=== PATIENT | male | born 1980 | race African-American/Black ===

== ENCOUNTER 2023-03-26 12:19 | Inpatient (IN) | payer OTHER, MEDICAID ==
[2023-03-26 13:42] LABS: #Eosinphils 0.1 thou/uL (0.0-0.7); #Monocytes 1.2 thou/uL (0.11-0.59); %Basophils 0.4 % (0.0-1.0); %Eosinophils 1.3 % (0.0-10.0); %Monocytes 11.9 % (0.0-10.0); %Neutrophils 60.4 % (42.0-75.0); Hematocrit 25.2 % (42.0-52.0); Mean Corpuscular HGB CONC 35.7 g/dL (32.0-36.0); Mean Corpuscular Hemoglobin 36.1 pg (27.0-31.0); Mean Corpuscular Volume 101.2 fl (78.0-98.0); Mean Platelet Volume 10.2 fL (7.4-10.4); Platelet Count 172 10x3/uL (130-400); RBC Distribution Width 17.5 % (11.5-14.5); Red Blood Cell (RBC) Count 2.49 mill/uL (4.70-6.10)
[2023-03-26 13:55] LABS: INR-International Normal Ratio 2.3; Prothrombin Time 25.2 sec (12.0-14.7)
[2023-03-26 13:59] LABS: ALT (SGPT) 22 U/L (8-55); AST (SGOT) 68 U/L (5-34); Acetaminophen Less than 10 mcg/mL (10.0-30.0); Alcohol Less than 10.0 mg/dL (Less than 10); Alkaline Phosphatase 70 U/L (40-110); Anion Gap 12 mmol/L (10-20); BUN (Urea Nitrogen) 13 mg/dL (8.9-20.6); Bilirubin, Total 7.3 mg/dL (0.2-1.2); Calc. Creatinine Clearance 0 mL/min (70-130); Calcium 7.5 mg/dL (7.8-10.44); Carbon Dioxide 19 mmol/L (22-29); Chloride 100 mmol/L (98-107); Estimated GFR 85; Globulin 6.2 g/dL (2.4-3.5); Glucose 110 mg/dL (70-105); Lipase 82 U/L (8-78); Protein, Total 8.2 g/dL (6.0-8.3); Salicylate Less than 8.0 mg/dL (15.0-30.0); Sodium 127 mmol/L (136-145)
[2023-03-26 14:20] LABS: Troponin I Less than 0.010 ng/mL (< 0.028)
[2023-03-26 14:45] LABS: Actual Bicarbonate (HCO3v) 18.3 mEq/L (22-28); Analyzer IN Cardio ER; Base Excess -4.9 mEq/L (-2.0 to +3.0); Calcium, Ionized (venous) 1.06 mmol/L (1.16-1.32); Chloride (VBG) 102 mmol/L (98-106); Hematocrit-VBG 36 % (42.0-52.0); Hemoglobin (Hb) 12.4 g/dL (13.2-17.3); Potassium (VBG) 4.21 mmol/L (3.70-5.30); Sodium 131 mmol/L (133-146); pH (venous) 7.422 (7.32-7.43)
[2023-03-26 17:16] LABS: Lactic Acid 1.7 mmol/L (0.5-2.2)
[2023-03-26] MEDS ORDERED: Lactulose 20 GM (30 mL) UDCUP ONE (18:15)
[2023-03-26] MEDS ORDERED: Sodium Chloride 0.9% 100 ML ONE (18:15)
[2023-03-26] MEDS ORDERED: cefTRIAXone (ROCEPHIN) 2 GM VIAL ONE (18:15)
[2023-03-26] MEDS ORDERED: Vancomycin (BATCH) 2 GM in Premix 1 BAG IVPB SCH (18:45)
[2023-03-26 20:32] LABS: RBC Count-Automated (BF) 14562 /cu.mm; WBC/Nucleated-Auto (BF) 235 /cu.mm
[2023-03-26 20:40] LABS: BF Color Red; Body Fluid Source Ascites Body Fluid; Clarity Cloudy/Turbid (Clear); Tube # EDTA
[2023-03-26 21:13] LABS: BF Segmented Neutrophils 18 %; Cell Count Non Hematic 29 %; Lymphocytes 53 %
[2023-03-26] MEDS ORDERED: Lorazepam 1 MG TAB PO PRN (21:37)
[2023-03-26] MEDS ORDERED: Lorazepam 2 MG/ML VIAL IM PRN (21:37)
[2023-03-26] MEDS ORDERED: Ondansetron ODT 4 MG TAB PO PRN ×2 (21:37→21:38)
[2023-03-26] MEDS ORDERED: Electrolyte Replacement Protocol FS SCH (21:45)
[2023-03-26] MEDS ORDERED: Albumin 5% 25 GM (500 mL) BOT IVPB SCH (22:30)
[2023-03-27] MEDS ORDERED: Thiamine HCl 200 MG/2 ML VIAL ONE (00:41)
[2023-03-27] MEDS: Thiamine HCl 200 MG/2 ML VIAL SLOW IVP SCH (00:48)
[2023-03-27 05:24] LABS: #Eosinphils 0.2 thou/uL (0.0-0.7); #Neutrophils 5.9 thou/uL (1.40-6.50); %Basophils 0.4 % (0.0-1.0); %Eosinophils 1.9 % (0.0-10.0); %Lymphocytes 24.3 % (21.0-51.0); %Monocytes 10.8 % (0.0-10.0); %Neutrophils 61.3 % (42.0-75.0); Hematocrit 23.9 % (42.0-52.0); Hemoglobin 8.6 g/dL (14.0-18.0); Mean Corpuscular Hemoglobin 36.6 pg (27.0-31.0); Mean Corpuscular Volume 101.7 fl (78.0-98.0); Mean Platelet Volume 10.4 fL (7.4-10.4); Platelet Count 155 10x3/uL (130-400); Red Blood Cell (RBC) Count 2.35 mill/uL (4.70-6.10); White Blood Cell (WBC) Count 9.5 10x3/uL (4.8-10.8)
[2023-03-27 05:53] LABS: ALT (SGPT) 19 U/L (8-55); AST (SGOT) 57 U/L (5-34); Alkaline Phosphatase 65 U/L (40-110); Anion Gap 12 mmol/L (10-20); BUN (Urea Nitrogen) 13 mg/dL (8.9-20.6); Bilirubin, Total 6.7 mg/dL (0.2-1.2); Calc. Creatinine Clearance 0 mL/min (70-130); Calcium 7.4 mg/dL (7.8-10.44); Carbon Dioxide 19 mmol/L (22-29); Chloride 104 mmol/L (98-107); Estimated GFR 111; Globulin 5.6 g/dL (2.4-3.5); Glucose 107 mg/dL (70-105); Potassium 3.7 mmol/L (3.5-5.1); Protein, Total 7.6 g/dL (6.0-8.3); Sodium 131 mmol/L (136-145)
[2023-03-27] MEDS ORDERED: cefTRIAXone\\ROCEPHIN 1 GM in Sodium Chloride 0.9% 100 ML IVPB SCH (09:00)
[2023-03-27] MEDS ORDERED: Folic Acid 1 MG TAB ONE (10:01)
[2023-03-27] MEDS ORDERED: Famotidine 20 MG TAB ONE (10:01)
[2023-03-27] MEDS ORDERED: Furosemide 40 MG TAB ONE (10:01)
[2023-03-27] MEDS ORDERED: Lactulose 20 GM (30 mL) UDCUP ONE (10:02)
[2023-03-27] MEDS ORDERED: cefTRIAXone (ROCEPHIN) 1 GM VIAL ONE (10:02)
[2023-03-27] MEDS ORDERED: Multivit, Therapeutic 1 TAB ONE (10:02)
[2023-03-27] MEDS: Multivit, Therapeutic 1 TAB PO SCH (10:09)
[2023-03-27] MEDS: Famotidine 20 MG TAB PO SCH ×2 (10:09→20:19)
[2023-03-27] MEDS: Folic Acid 1 MG TAB PO SCH (10:09)
[2023-03-27] MEDS: Furosemide 40 MG TAB PO SCH (10:09)
[2023-03-27] MEDS: Lactulose 20 GM (30 mL) UDCUP PO SCH ×2 (10:11→20:19)
[2023-03-27] MEDS: Nadolol 40 MG TAB PO SCH (14:05)
[2023-03-27] MEDS: Rifaximin 550 MG TAB PO SCH ×2 (14:05→20:19)
[2023-03-27] MEDS: Spironolactone 100 MG TAB PO SCH (14:05)
[2023-03-27] MEDS ORDERED: Benztropine 1 MG TAB PO SCH (19:15)
[2023-03-27] MEDS ORDERED: risperiDONE 1 MG TAB PO SCH (19:15)
[2023-03-27] MEDS: Benztropine 1 MG TAB PO SCH (20:19)
[2023-03-27] MEDS: risperiDONE 1 MG TAB PO SCH (20:19)
[2023-03-27] MEDS ORDERED: Lorazepam 1 MG TAB PO PRN (21:37)
[2023-03-28] MEDS: Thiamine HCl 200 MG/2 ML VIAL SLOW IVP SCH ×2 (00:01→22:50)
[2023-03-28 04:23] LABS: #Eosinphils 0.1 thou/uL (0.0-0.7); #Monocytes 0.8 thou/uL (0.11-0.59); #Neutrophils 4.9 thou/uL (1.40-6.50); %Basophils 0.5 % (0.0-1.0); %Eosinophils 1.4 % (0.0-10.0); %Monocytes 10.3 % (0.0-10.0); %Neutrophils 61.3 % (42.0-75.0); Hematocrit 21.3 % (42.0-52.0); Hemoglobin 7.5 g/dL (14.0-18.0); Mean Corpuscular HGB CONC 35.2 g/dL (32.0-36.0); Mean Corpuscular Hemoglobin 35.7 pg (27.0-31.0); Mean Corpuscular Volume 101.4 fl (78.0-98.0); Mean Platelet Volume 9.8 fL (7.4-10.4); Platelet Count 129 10x3/uL (130-400); RBC Distribution Width 17.4 % (11.5-14.5)
[2023-03-28 04:48] LABS: Iron 52 ug/dL (65-175); Iron Binding Capacity, Total 104 mcg/dL (261-462)
[2023-03-28 04:49] LABS: ALT (SGPT) 19 U/L (8-55); AST (SGOT) 57 U/L (5-34); Alkaline Phosphatase 73 U/L (40-110); Anion Gap 11 mmol/L (10-20); BUN (Urea Nitrogen) 11 mg/dL (8.9-20.6); Bilirubin, Total 5.7 mg/dL (0.2-1.2); Calc. Creatinine Clearance 191 mL/min (70-130); Calcium 7.4 mg/dL (7.8-10.44); Carbon Dioxide 21 mmol/L (22-29); Chloride 103 mmol/L (98-107); Estimated GFR 110; Globulin 5.4 g/dL (2.4-3.5); Glucose 114 mg/dL (70-105); Iron 53 ug/dL (65-175); Iron Binding Capacity, Total 101 mcg/dL (261-462); Magnesium 3.1 mg/dL (1.6-2.6); Potassium 3.6 mmol/L (3.5-5.1); Protein, Total 7.4 g/dL (6.0-8.3); Sodium 131 mmol/L (136-145)
[2023-03-28 04:51] LABS: Immunoglob - A (Total IgA) 1878 mg/dL (63-484); Immunoglob - G (Total IgG) 2742 mg/dL (540-1822); Immunoglob - M (Total IgM) 109 mg/dL (22-240)
[2023-03-28 05:18] LABS: HBCM Index 0.09 S/CO (0-0.79); HBSAg Index 0.26 S/CO (0-0.99); Hep A IgM AB Non-Reactive S/CO (NonReactive); Hep B Surf Ag Non-Reactive S/CO (NonReactive); Hep C IgG Ab Non-Reactive S/CO (NonReactive); Hep C Index 0.18 S/CO (0-0.79); Hepatitis B Core IgM Abs Non-Reactive S/CO (NonReactive)
[2023-03-28] MEDS: Folic Acid 1 MG TAB PO SCH (08:15)
[2023-03-28] MEDS: Famotidine 20 MG TAB PO SCH (08:15)
[2023-03-28] MEDS: Furosemide 40 MG TAB PO SCH (08:15)
[2023-03-28] MEDS: Spironolactone 100 MG TAB PO SCH (08:15)
[2023-03-28] MEDS: Multivit, Therapeutic 1 TAB PO SCH (08:15)
[2023-03-28] MEDS: Nadolol 40 MG TAB PO SCH (08:15)
[2023-03-28] MEDS: Rifaximin 550 MG TAB PO SCH ×2 (08:15→20:43)
[2023-03-28] MEDS ORDERED: Amlodipine 5 MG TAB PO SCH (09:00)
[2023-03-28] MEDS: Lactulose 20 GM (30 mL) UDCUP PO SCH ×2 (10:00→20:41)
[2023-03-28] MEDS: Benztropine 1 MG TAB PO SCH (20:42)
[2023-03-28] MEDS: risperiDONE 1 MG TAB PO SCH (20:45)
[2023-03-28] MEDS ORDERED: Lorazepam 1 MG TAB PO PRN (21:37)
[2023-03-29 07:08] LABS: ALT (SGPT) 21 U/L (8-55); AST (SGOT) 69 U/L (5-34); Albumin 2.1 g/dL (3.5-5.0); Alkaline Phosphatase 77 U/L (40-110); Anion Gap 12 mmol/L (10-20); BUN (Urea Nitrogen) 10 mg/dL (8.9-20.6); Bilirubin, Total 5.9 mg/dL (0.2-1.2); Calc. Creatinine Clearance 183 mL/min (70-130); Calcium 7.5 mg/dL (7.8-10.44); Carbon Dioxide 20 mmol/L (22-29); Chloride 103 mmol/L (98-107); Estimated GFR 109; Globulin 5.8 g/dL (2.4-3.5); Glucose 134 mg/dL (70-105); Potassium 3.7 mmol/L (3.5-5.1); Protein, Total 7.9 g/dL (6.0-8.3); Sodium 130 mmol/L (136-145)
[2023-03-29 07:49] LABS: #Basophils 0.1 thou/uL (0.0-0.2); #Eosinphils 0.2 thou/uL (0.0-0.7); #Monocytes 0.6 thou/uL (0.11-0.59); #Neutrophils 5.1 thou/uL (1.40-6.50); %Basophils 0.7 % (0.0-1.0); %Eosinophils 2.1 % (0.0-10.0); %Lymphocytes 19.8 % (21.0-51.0); %Monocytes 8.2 % (0.0-10.0); %Neutrophils 68.1 % (42.0-75.0); Hemoglobin 7.8 g/dL (14.0-18.0); Mean Corpuscular HGB CONC 35.5 g/dL (32.0-36.0); Mean Corpuscular Hemoglobin 36.4 pg (27.0-31.0); Mean Corpuscular Volume 102.8 fl (78.0-98.0); Mean Platelet Volume 10.3 fL (7.4-10.4); Platelet Count 134 10x3/uL (130-400); RBC Distribution Width 17.6 % (11.5-14.5); Red Blood Cell (RBC) Count 2.14 mill/uL (4.70-6.10); White Blood Cell (WBC) Count 7.5 10x3/uL (4.8-10.8)
[2023-03-29] MEDS: Amlodipine 5 MG TAB PO SCH (08:13)
[2023-03-29] MEDS: Folic Acid 1 MG TAB PO SCH (08:13)
[2023-03-29] MEDS: Furosemide 40 MG TAB PO SCH (08:13)
[2023-03-29] MEDS: Lactulose 20 GM (30 mL) UDCUP PO SCH ×2 (08:13→21:03)
[2023-03-29] MEDS: Atorvastatin Calcium 20 MG TAB PO SCH (08:13)
[2023-03-29] MEDS: Multivit, Therapeutic 1 TAB PO SCH (08:13)
[2023-03-29] MEDS: Nadolol 40 MG TAB PO SCH (08:13)
[2023-03-29] MEDS: Spironolactone 100 MG TAB PO SCH (08:13)
[2023-03-29] MEDS: Rifaximin 550 MG TAB PO SCH ×2 (08:54→21:03)
[2023-03-29] MEDS: Acetaminophen 325 MG TAB PO PRN ×2 (10:14→15:35)
[2023-03-29 12:02] LABS: ANA Symphony (Qualitative) Negative (Negative); ANA Symphony (Quantitative) 0.4 Ratio (< 0.7 Negative); EliA Vaculitis New Method **** NEW METHOD ****; Mitochondrial Ab 1.6 U/mL (<4 Negative); dsDNA IgG Antibody 2.5 IU/mL (<10 Negative)
[2023-03-29] MEDS: cefTRIAXone\\ROCEPHIN 2 GM in Sodium Chloride 0.9% 100 ML IVPB SCH (12:54)
[2023-03-29] MEDS ORDERED: Sodium Bicarbonate 0.5 MEQ/ML SDV 10 ML ONE (14:29)
[2023-03-29] MEDS ORDERED: Lidocaine 1% w/Epinephrine 1:100K 20 ML VIAL ONE (14:29)
[2023-03-29] MEDS: risperiDONE 1 MG TAB PO SCH (21:03)
[2023-03-29] MEDS: Benztropine 1 MG TAB PO SCH (21:03)
[2023-03-29] MEDS ORDERED: Lorazepam 0.5 MG TAB PO PRN (21:37)
[2023-03-29] MEDS: Thiamine 100 MG TAB PO SCH (23:32)
[2023-03-30] MEDS ORDERED: GUAIFENESIN SF SOLN 200 MG/10 ML UDCUP PO PRN (04:22)
[2023-03-30] MEDS: Benzonatate 100 MG CAP PO PRN ×2 (05:55→22:56)
[2023-03-30] MEDS ORDERED: Acetaminophen 325 MG TAB PO PRN (07:41)
[2023-03-30] MEDS: Spironolactone 100 MG TAB PO SCH (08:47)
[2023-03-30] MEDS: Rifaximin 550 MG TAB PO SCH ×2 (08:47→22:59)
[2023-03-30] MEDS: Lactulose 20 GM (30 mL) UDCUP PO SCH ×2 (08:47→22:47)
[2023-03-30] MEDS: Amlodipine 5 MG TAB PO SCH (08:47)
[2023-03-30] MEDS: Nadolol 40 MG TAB PO SCH (08:47)
[2023-03-30] MEDS: Furosemide 40 MG TAB PO SCH (08:48)
[2023-03-30] MEDS: Folic Acid 1 MG TAB PO SCH (08:48)
[2023-03-30] MEDS: Multivit, Therapeutic 1 TAB PO SCH (08:48)
[2023-03-30] MEDS: Atorvastatin Calcium 20 MG TAB PO SCH (08:48)
[2023-03-30] MEDS: cefTRIAXone\\ROCEPHIN 2 GM in Sodium Chloride 0.9% 100 ML IVPB SCH (12:01)
[2023-03-30] MEDS ORDERED: Guaifenesin DM 100-10/5 ML UDCUP PO PRN (15:09)
[2023-03-30] MEDS ORDERED: Vancomycin (BATCH) 2 GM in Premix 1 BAG IVPB SCH (15:30)
[2023-03-30 20:31] LABS: Bilirubin Negative (Negative); Blood, Urine Negative (Negative); Clarity Clear (Clear); Glucose, Urine (Dipstick) Normal (Negative); Ketone, Urine Negative (Negative); Leukocyte Negative Leu/uL (Negative); Nitrite Negative (Negative); Protein, Urine (Dipstick) Negative (Neg-Trace); Specific Gravity, Urine 1.009 (1.002-1.036); Urobilinogen 12 mg/dL (Less than 2)
[2023-03-30] MEDS ORDERED: Vancomycin 1 GM in Premix 1 BAG IVPB SCH (21:00)
[2023-03-30] MEDS: risperiDONE 1 MG TAB PO SCH (22:47)
[2023-03-30] MEDS: Benztropine 1 MG TAB PO SCH (22:47)
[2023-03-30] MEDS: Thiamine 100 MG TAB PO SCH (22:47)
[2023-03-30] MEDS: Vancomycin 1 GM in Premix 1 BAG IVPB SCH (23:05)
[2023-03-31 05:21] LABS: #Eosinphils 0.1 thou/uL (0.0-0.7); #Monocytes 0.8 thou/uL (0.11-0.59); #Neutrophils 3.5 thou/uL (1.40-6.50); %Basophils 0.5 % (0.0-1.0); %Eosinophils 1.9 % (0.0-10.0); %Lymphocytes 29.3 % (21.0-51.0); %Monocytes 12.5 % (0.0-10.0); %Neutrophils 54.9 % (42.0-75.0); Hemoglobin 7.1 g/dL (14.0-18.0); Mean Corpuscular HGB CONC 35.5 g/dL (32.0-36.0); Mean Corpuscular Hemoglobin 36.2 pg (27.0-31.0); Mean Platelet Volume 10.2 fL (7.4-10.4); Platelet Count 113 10x3/uL (130-400); RBC Distribution Width 17.6 % (11.5-14.5); Red Blood Cell (RBC) Count 1.96 mill/uL (4.70-6.10); White Blood Cell (WBC) Count 6.3 10x3/uL (4.8-10.8)
[2023-03-31 05:40] LABS: ALT (SGPT) 31 U/L (8-55); AST (SGOT) 125 U/L (5-34); Albumin 1.9 g/dL (3.5-5.0); Alkaline Phosphatase 75 U/L (40-110); Anion Gap 12 mmol/L (10-20); BUN (Urea Nitrogen) 8 mg/dL (8.9-20.6); Bilirubin, Total 4.3 mg/dL (0.2-1.2); Calc. Creatinine Clearance 189 mL/min (70-130); Calcium 7.2 mg/dL (7.8-10.44); Carbon Dioxide 21 mmol/L (22-29); Chloride 102 mmol/L (98-107); Estimated GFR 110; Globulin 5.8 g/dL (2.4-3.5); Glucose 107 mg/dL (70-105); Potassium 3.6 mmol/L (3.5-5.1); Protein, Total 7.7 g/dL (6.0-8.3); Sodium 131 mmol/L (136-145)
[2023-03-31] MEDS: Folic Acid 1 MG TAB PO SCH (08:59)
[2023-03-31] MEDS: Nadolol 40 MG TAB PO SCH (08:59)
[2023-03-31] MEDS: Multivit, Therapeutic 1 TAB PO SCH (08:59)
[2023-03-31] MEDS: Spironolactone 100 MG TAB PO SCH (08:59)
[2023-03-31] MEDS: Amlodipine 5 MG TAB PO SCH (09:00)
[2023-03-31] MEDS: Rifaximin 550 MG TAB PO SCH ×2 (09:00→22:14)
[2023-03-31] MEDS: Lactulose 20 GM (30 mL) UDCUP PO SCH ×2 (09:00→22:14)
[2023-03-31] MEDS: Atorvastatin Calcium 20 MG TAB PO SCH (09:00)
[2023-03-31] MEDS: Vancomycin 1 GM in Premix 1 BAG IVPB SCH ×2 (09:01→16:50)
[2023-03-31] MEDS: Furosemide 40 MG TAB PO SCH (09:01)
[2023-03-31] MEDS ORDERED: Vancomycin 1 GM in Premix 1 BAG IVPB SCH (11:45)
[2023-03-31] MEDS: cefTRIAXone\\ROCEPHIN 2 GM in Sodium Chloride 0.9% 100 ML IVPB SCH (14:21)
[2023-03-31 16:12] LABS: Vancomycin, Trough 11.9 ug/mL
[2023-03-31] MEDS ORDERED: Acetaminophen 325 MG TAB PO PRN (16:36)
[2023-03-31] MEDS: Albumin 25% 25 GM (100 mL) BOT IVPB SCH (19:39)
[2023-03-31] MEDS: Thiamine 100 MG TAB PO SCH (22:13)
[2023-03-31] MEDS: risperiDONE 1 MG TAB PO SCH (22:13)
[2023-03-31] MEDS: Benztropine 1 MG TAB PO SCH (22:14)
[2023-04-01] MEDS: Albumin 25% 25 GM (100 mL) BOT IVPB SCH ×4 (00:03→18:03)
[2023-04-01] MEDS: Vancomycin 1 GM in Premix 1 BAG IVPB SCH ×2 (00:49→11:11)
[2023-04-01 04:30] LABS: #Basophils 0.1 thou/uL (0.0-0.2); #Eosinphils 0.2 thou/uL (0.0-0.7); #Monocytes 0.8 thou/uL (0.11-0.59); #Neutrophils 3.5 thou/uL (1.40-6.50); %Basophils 0.8 % (0.0-1.0); %Eosinophils 3.5 % (0.0-10.0); %Lymphocytes 28.8 % (21.0-51.0); %Monocytes 12.7 % (0.0-10.0); %Neutrophils 53.1 % (42.0-75.0); Hematocrit 18.1 % (42.0-52.0); Hemoglobin 6.4 g/dL (14.0-18.0); Mean Corpuscular HGB CONC 35.4 g/dL (32.0-36.0); Mean Corpuscular Hemoglobin 35.6 pg (27.0-31.0); Mean Corpuscular Volume 100.6 fl (78.0-98.0); Mean Platelet Volume 10.3 fL (7.4-10.4); Platelet Count 100 10x3/uL (130-400); RBC Distribution Width 17.6 % (11.5-14.5); White Blood Cell (WBC) Count 6.6 10x3/uL (4.8-10.8)
[2023-04-01 04:57] LABS: ALT (SGPT) 24 U/L (8-55); AST (SGOT) 87 U/L (5-34); Alkaline Phosphatase 67 U/L (40-110); BUN (Urea Nitrogen) 7 mg/dL (8.9-20.6); Calc. Creatinine Clearance 203 mL/min (70-130); Carbon Dioxide 23 mmol/L (22-29); Estimated GFR 112; Globulin 4.7 g/dL (2.4-3.5); Glucose 130 mg/dL (70-105); Protein, Total 6.7 g/dL (6.0-8.3); Sodium 132 mmol/L (136-145)
[2023-04-01 05:02] LABS: Calcium 6.9 mg/dL (7.8-10.44)
[2023-04-01 05:19] LABS: Chloride 105 mmol/L (98-107); Potassium 3.4 mmol/L (3.5-5.1)
[2023-04-01 05:20] LABS: Anion Gap 7 mmol/L (10-20)
[2023-04-01] MEDS ORDERED: Calcium Carbonate 600 MG + Vit D TAB PO SCH (08:30)
[2023-04-01] MEDS ORDERED: Potassium Chloride 20 MEQ TAB PO SCH ×2 (08:30→17:00)
[2023-04-01] MEDS ORDERED: Vancomycin 1 GM in Premix 1 BAG IVPB SCH (10:45)
[2023-04-01] MEDS: Furosemide 40 MG TAB PO SCH (10:55)
[2023-04-01] MEDS: Folic Acid 1 MG TAB PO SCH (10:55)
[2023-04-01] MEDS: Lactulose 20 GM (30 mL) UDCUP PO SCH ×2 (10:55→22:41)
[2023-04-01] MEDS: Multivit, Therapeutic 1 TAB PO SCH (10:55)
[2023-04-01] MEDS: Amlodipine 5 MG TAB PO SCH ×2 (10:56→11:12)
[2023-04-01] MEDS: Spironolactone 100 MG TAB PO SCH (10:56)
[2023-04-01] MEDS: Rifaximin 550 MG TAB PO SCH ×2 (10:57→22:41)
[2023-04-01] MEDS: cefTRIAXone\\ROCEPHIN 2 GM in Sodium Chloride 0.9% 100 ML IVPB SCH (14:42)
[2023-04-01] MEDS: Calcium Carbonate 600 MG + Vit D TAB PO SCH (18:02)
[2023-04-01] MEDS: Thiamine 100 MG TAB PO SCH (22:40)
[2023-04-01] MEDS: risperiDONE 1 MG TAB PO SCH (22:40)
[2023-04-01] MEDS: Benztropine 1 MG TAB PO SCH (22:40)
[2023-04-02 04:25] LABS: #Eosinphils 0.3 thou/uL (0.0-0.7); #Monocytes 0.8 thou/uL (0.11-0.59); #Neutrophils 3.6 thou/uL (1.40-6.50); %Basophils 0.6 % (0.0-1.0); %Eosinophils 3.6 % (0.0-10.0); %Lymphocytes 31.8 % (21.0-51.0); %Monocytes 11.2 % (0.0-10.0); %Neutrophils 52.2 % (42.0-75.0); Hemoglobin 7.8 g/dL (14.0-18.0); Mean Corpuscular HGB CONC 35.5 g/dL (32.0-36.0); Mean Corpuscular Hemoglobin 35.5 pg (27.0-31.0); Mean Platelet Volume 10.6 fL (7.4-10.4); Platelet Count 109 10x3/uL (130-400); RBC Distribution Width 18.1 % (11.5-14.5); White Blood Cell (WBC) Count 6.9 10x3/uL (4.8-10.8)
[2023-04-02 04:28] LABS: INR-International Normal Ratio 2.4; Prothrombin Time 25.9 sec (12.0-14.7)
[2023-04-02 04:45] LABS: ALT (SGPT) 27 U/L (8-55); AST (SGOT) 86 U/L (5-34); Albumin 2.4 g/dL (3.5-5.0); Alkaline Phosphatase 77 U/L (40-110); Bilirubin, Direct 2.6 mg/dL (0.1-0.3); Bilirubin, Total 3.5 mg/dL (0.2-1.2); Protein, Total 7.4 g/dL (6.0-8.3)
[2023-04-02] MEDS: Albumin 25% 25 GM (100 mL) BOT IVPB SCH ×4 (04:58→18:11)
[2023-04-02 05:06] LABS: Anion Gap 13 mmol/L (10-20); BUN (Urea Nitrogen) 6 mg/dL (8.9-20.6); Calc. Creatinine Clearance 199 mL/min (70-130); Calcium 7.7 mg/dL (7.8-10.44); Carbon Dioxide 22 mmol/L (22-29); Chloride 105 mmol/L (98-107); Estimated GFR 111; Glucose 95 mg/dL (70-105); Magnesium 1.7 mg/dL (1.6-2.6); Potassium 3.6 mmol/L (3.5-5.1); Sodium 136 mmol/L (136-145)
[2023-04-02] MEDS: Amlodipine 5 MG TAB PO SCH (08:46)
[2023-04-02] MEDS: Multivit, Therapeutic 1 TAB PO SCH (08:46)
[2023-04-02] MEDS: Rifaximin 550 MG TAB PO SCH ×2 (08:46→20:34)
[2023-04-02] MEDS: Spironolactone 100 MG TAB PO SCH (08:46)
[2023-04-02] MEDS: Calcium Carbonate 600 MG + Vit D TAB PO SCH ×3 (08:46→17:07)
[2023-04-02] MEDS: Furosemide 40 MG TAB PO SCH (08:47)
[2023-04-02] MEDS: Lactulose 20 GM (30 mL) UDCUP PO SCH ×2 (08:47→20:30)
[2023-04-02] MEDS: Magnesium 2 GM/50 ML(in water) 2 GM in Premix 1 BAG IVPB SCH ×2 (08:47→08:58)
[2023-04-02] MEDS: Folic Acid 1 MG TAB PO SCH (08:47)
[2023-04-02] MEDS: cefTRIAXone\\ROCEPHIN 2 GM in Sodium Chloride 0.9% 100 ML IVPB SCH (12:47)
[2023-04-02] MEDS ORDERED: Phytonadione 5 MG TAB PO SCH (13:15)
[2023-04-02 14:58] VITALS: BMI 36.0
[2023-04-02] MEDS: Benztropine 1 MG TAB PO SCH (20:30)
[2023-04-02] MEDS: risperiDONE 1 MG TAB PO SCH (20:30)
[2023-04-02] MEDS: Thiamine 100 MG TAB PO SCH (22:49)
[2023-04-03 07:34] LABS: #Eosinphils 0.2 thou/uL (0.0-0.7); #Monocytes 0.9 thou/uL (0.11-0.59); #Neutrophils 4.5 thou/uL (1.40-6.50); %Basophils 0.5 % (0.0-1.0); %Lymphocytes 27.7 % (21.0-51.0); Hematocrit 21.8 % (42.0-52.0); Hemoglobin 7.7 g/dL (14.0-18.0); Mean Corpuscular HGB CONC 35.3 g/dL (32.0-36.0); Mean Corpuscular Hemoglobin 35.5 pg (27.0-31.0); Mean Corpuscular Volume 100.5 fl (78.0-98.0); Mean Platelet Volume 10.5 fL (7.4-10.4); Platelet Count 98 10x3/uL (130-400); RBC Distribution Width 17.7 % (11.5-14.5); Red Blood Cell (RBC) Count 2.17 mill/uL (4.70-6.10)
[2023-04-03 07:58] LABS: ALT (SGPT) 25 U/L (8-55); AST (SGOT) 74 U/L (5-34); Albumin 2.7 g/dL (3.5-5.0); Alkaline Phosphatase 82 U/L (40-110); Anion Gap 11 mmol/L (10-20); BUN (Urea Nitrogen) 5 mg/dL (8.9-20.6); Bilirubin, Total 3.9 mg/dL (0.2-1.2); Calc. Creatinine Clearance 209 mL/min (70-130); Calcium 7.6 mg/dL (7.8-10.44); Carbon Dioxide 22 mmol/L (22-29); Chloride 105 mmol/L (98-107); Cholesterol 58 mg/dl (< 200 Desired); Estimated GFR 113; Globulin 4.7 g/dL (2.4-3.5); Glucose 103 mg/dL (70-105); HDL Cholesterol Less than 8 mg/dL (>60 Neg Risk); Magnesium 1.5 mg/dL (1.6-2.6); Potassium 3.4 mmol/L (3.5-5.1); Protein, Total 7.4 g/dL (6.0-8.3); Sodium 135 mmol/L (136-145); Triglycerides 70 mg/dL (Less than 150)
[2023-04-03 08:04] LABS: Cardiac Risk TEST NOT PERFORMED (Less than 4.5)
[2023-04-03] MEDS: Furosemide 40 MG TAB PO SCH (08:53)
[2023-04-03] MEDS: Rifaximin 550 MG TAB PO SCH ×2 (08:53→20:36)
[2023-04-03] MEDS: Lactulose 20 GM (30 mL) UDCUP PO SCH ×2 (08:53→20:36)
[2023-04-03] MEDS: Amlodipine 5 MG TAB PO SCH (08:53)
[2023-04-03] MEDS: Multivit, Therapeutic 1 TAB PO SCH (08:54)
[2023-04-03] MEDS: Spironolactone 100 MG TAB PO SCH (08:54)
[2023-04-03] MEDS: Folic Acid 1 MG TAB PO SCH (08:54)
[2023-04-03] MEDS: Calcium Carbonate 600 MG + Vit D TAB PO SCH ×2 (08:54→15:59)
[2023-04-03] MEDS ORDERED: Magnesium 2 GM/50 ML(in water) 2 GM in Premix 1 BAG IVPB SCH ×2 (09:30)
[2023-04-03] MEDS ORDERED: Potassium Chloride 20 MEQ TAB PO SCH ×2 (09:30)
[2023-04-03] MEDS ORDERED: Lidocaine 1% PF 5 ML VIAL ONE (13:56)
[2023-04-03] MEDS ORDERED: Lorazepam 2 MG/ML VIAL SLOW IVP SCH (15:45)
[2023-04-03] MEDS ORDERED: Iron, Sodium Ferric Gluconate 250 MG in Sodium Chloride 0.9% 250 ML 250 ML IVPB SCH (16:00)
[2023-04-03] MEDS ORDERED: Albumin 25% 25 GM (100 mL) BOT IVPB SCH ×2 (16:30→16:45)
[2023-04-03 16:34] LABS: RBC Count-Automated (BF) 80350 /cu.mm; WBC/Nucleated-Auto (BF) 357 /cu.mm
[2023-04-03 16:45] LABS: BF Color Red; Body Fluid Source Ascites Body Fluid; Clarity Cloudy/Turbid (Clear); Tube # EDTA
[2023-04-03 16:54] LABS: Potassium 3.6 mmol/L (3.5-5.1)
[2023-04-03 18:17] LABS: BF Segmented Neutrophils 16 %; Cell Count Non Hematic 33 %; Eosinophils 2 %; Lymphocytes 47 %
[2023-04-03] MEDS: risperiDONE 1 MG TAB PO SCH (20:35)
[2023-04-03] MEDS: Benztropine 1 MG TAB PO SCH (20:36)
[2023-04-03] MEDS: Acetaminophen 325 MG TAB PO PRN (20:55)
[2023-04-03] MEDS: Thiamine 100 MG TAB PO SCH (22:53)
[2023-04-04] MEDS: Amlodipine 5 MG TAB PO SCH (08:56)
[2023-04-04] MEDS: Lactulose 20 GM (30 mL) UDCUP PO SCH (08:56)
[2023-04-04] MEDS: Calcium Carbonate 600 MG + Vit D TAB PO SCH (08:56)
[2023-04-04] MEDS: Multivit, Therapeutic 1 TAB PO SCH (08:56)
[2023-04-04] MEDS: Folic Acid 1 MG TAB PO SCH (08:56)
[2023-04-04] MEDS: Spironolactone 100 MG TAB PO SCH (08:57)
[2023-04-04] MEDS: Furosemide 40 MG TAB PO SCH (08:57)
[2023-04-04] MEDS: Acetaminophen 325 MG TAB PO PRN (08:59)
[2023-04-04 09:00] VITALS: BP 127/67
[2023-04-04] MEDS: Rifaximin 550 MG TAB PO SCH (09:31)
[2023-04-04 09:36] VITALS: TEMP 99.2
[2023-04-04] MEDS ORDERED: Magnesium 2 GM/50 ML(in water) 2 GM in Premix 1 BAG IVPB SCH (11:00)
[2023-04-04] MEDS ORDERED: Iron, Sodium Ferric Gluconate 250 MG in Sodium Chloride 0.9% 250 ML 250 ML IVPB SCH (17:00)
== END 2023-04-04 16:10 | disposition home or self-care (01) | DRG 871 ==
LOC: ERS 12:19 → ERHOLD 20:44 → CCU 23:03 → 2NO 03-29 06:48 → T4-A 04-01 19:38
PROVIDERS: ADMIT Student in an Organized Health Care Education/Training Program; ATTEND Hospitalist
PROC: 0W9G3ZZ Drainage of Peritoneal Cavity, Percutaneous Approach (ICD-10-PCS; principal; 2023-03-26)
PROC: 30233J1 Transfusion of Nonautologous Serum Albumin into Peripheral Vein, Percutaneous Approach (ICD-10-PCS; 2023-03-26)
PROC: 3E03329 Introduction of Other Anti-infective into Peripheral Vein, Percutaneous Approach (ICD-10-PCS; 2023-03-26)
PROC: 0W9G3ZZ Drainage of Peritoneal Cavity, Percutaneous Approach (ICD-10-PCS; 2023-03-29)
PROC: 30233N1 Transfusion of Nonautologous Red Blood Cells into Peripheral Vein, Percutaneous Approach (ICD-10-PCS; 2023-04-01)
PROC: 0W9G3ZZ Drainage of Peritoneal Cavity, Percutaneous Approach (ICD-10-PCS; 2023-04-03)
DX: A41.2 Sepsis due to unspecified staphylococcus (principal); K65.2 Spontaneous bacterial peritonitis; K72.00 Acute and subacute hepatic failure without coma; E72.4 Disorders of ornithine metabolism; F20.9 Schizophrenia, unspecified; F17.210 Nicotine dependence, cigarettes, uncomplicated; K70.31 Alcoholic cirrhosis of liver with ascites; K72.10 Chronic hepatic failure without coma; F10.20 Alcohol dependence, uncomplicated; I10 Essential (primary) hypertension; K76.82 Hepatic encephalopathy; E66.9 Obesity, unspecified; D64.9 Anemia, unspecified; D69.6 Thrombocytopenia, unspecified; E87.6 Hypokalemia; K76.89 Other specified diseases of liver; Z68.36 Body mass index [BMI] 36.0-36.9, adult
CPT/HCPCS: 36415; 36430; 49083; 71045; 76705; 80048; 80053; 80061; 80074; 80076; 80202; 80307; 81003; 82042; 82103; 82105; 82140; 82390; 82728; 82805; 83516; 83540; 83550; 83605; 83690; 83735; 83880; 84157; 84443; 84484; 85025; 85046; 85060; 85610; 85730; 86015; 86038; 86140; 86225; 86850; 86900; 86901; 87040; 87070; 87077; 87149; 87205; 89051; 93005; 94760; J0696; J2060; J3370; J3370-JW; J3411; J3475; J3490; P9016; P9045; P9047

== ENCOUNTER 2023-04-29 07:13 | Day surgery (SDC) | payer OTHER, MEDICAID ==
[2023-04-29] MEDS ORDERED: Albumin 25% 100 ML ONE ×2 (07:58→10:05)
[2023-04-29] MEDS ORDERED: Lidocaine 1% PF 5 ML VIAL ONE (07:58)
[2023-04-29] MEDS ORDERED: Sodium Bicarbonate 2.5 MEQ/5 ML SDV ONE (07:59)
[2023-04-29 12:11] VITALS: BP 155/104
== END 2023-04-29 11:00 | disposition home or self-care (01) ==
LOC: ULT 07:13
PROVIDERS: ATTEND Physician Assistant Medical
PROC: 0W9G3ZZ Drainage of Peritoneal Cavity, Percutaneous Approach (ICD-10-PCS; principal; 2023-04-29)
DX: K70.31 Alcoholic cirrhosis of liver with ascites (principal); K72.90 Hepatic failure, unspecified without coma; D64.9 Anemia, unspecified
CPT/HCPCS: 49083; P9047

== ENCOUNTER 2023-07-22 07:56 | Day surgery (SDC) | payer OTHER, MEDICAID ==
[2023-07-22] MEDS ORDERED: Sodium Bicarbonate 2.5 MEQ/5 ML SDV ONE (08:06)
[2023-07-22] MEDS ORDERED: Lidocaine 1% PF 5 ML VIAL ONE (08:06)
[2023-07-22] MEDS ORDERED: Albumin 25% 200 ML ONE (08:06)
[2023-07-22 13:58] VITALS: BP 147/92; TEMP 98
== END 2023-07-22 10:40 | disposition home or self-care (01) ==
LOC: ULT 07:56
PROVIDERS: ATTEND Physician Assistant Medical
PROC: 0W9G30Z Drainage of Peritoneal Cavity with Drainage Device, Percutaneous Approach (ICD-10-PCS; principal; 2023-07-22)
DX: K70.31 Alcoholic cirrhosis of liver with ascites (principal); K72.90 Hepatic failure, unspecified without coma; D64.9 Anemia, unspecified
CPT/HCPCS: 49083; P9047

== ENCOUNTER 2023-08-02 08:29 | Day surgery (SDC) | payer OTHER, MEDICAID ==
[2023-08-02] MEDS ORDERED: Albumin 25% 0 ML ONE (08:41)
[2023-08-02] MEDS ORDERED: Sodium Bicarbonate 2.5 MEQ/5 ML SDV ONE (08:41)
[2023-08-02] MEDS ORDERED: Lidocaine 1% PF 5 ML VIAL ONE (08:41)
== END 2023-08-02 10:30 | disposition home or self-care (01) ==
LOC: ULT 08:29
PROVIDERS: ATTEND Physician Assistant Medical
PROC: 0W9G3ZZ Drainage of Peritoneal Cavity, Percutaneous Approach (ICD-10-PCS; principal; 2023-08-02)
DX: K70.31 Alcoholic cirrhosis of liver with ascites (principal); K72.90 Hepatic failure, unspecified without coma; D64.9 Anemia, unspecified
CPT/HCPCS: 49083; P9047

== ENCOUNTER → 2023-08-19 | Day surgery (SDC) | payer OTHER, MEDICAID ==
[~2023-08-19] MED LIST: Lidocaine 1% PF 5 ML VIAL ONE; Sodium Bicarbonate 2.5 MEQ/5 ML SDV ONE
[2023-08-19 08:58] LABS: #Basophils 0.11 10x3/uL (0.0-0.2); %Basophils 1.6 % (0.0-1.0); %Eosinophils 2.2 % (0.0-10.0); %Lymphocytes 23.2 % (21.0-51.0); %Monocytes 15.4 % (0.0-10.0); %Neutrophils 57.3 % (42.0-75.0); Hematocrit 30.3 % (42.0-52.0); Hemoglobin 10.1 g/dL (14.0-18.0); Mean Corpuscular HGB CONC 33.3 g/dL (32.0-36.0); Mean Corpuscular Hemoglobin 32.6 pg (27.0-31.0); Mean Corpuscular Volume 97.7 fL (78.0-98.0); Mean Platelet Volume 10.1 fL (7.4-10.4); Platelet Count 129 10x3/uL (130-400); RBC Distribution Width 17.3 % (11.5-14.5)
[2023-08-19 09:24] LABS: INR-International Normal Ratio 1.9; Prothrombin Time 21.6 sec (12.0-14.7)
[2023-08-19 09:25] LABS: PTT 41.7 sec (22.9-36.1)
== END ==
LOC: ULT 08:38
PROVIDERS: ATTEND Physician Assistant Medical
PROC: 0W9G3ZZ Drainage of Peritoneal Cavity, Percutaneous Approach (ICD-10-PCS; principal; 2023-08-19)
DX: K70.31 Alcoholic cirrhosis of liver with ascites (principal); K72.90 Hepatic failure, unspecified without coma; D64.9 Anemia, unspecified
CPT/HCPCS: 36415; 49083; 85025; 85610; 85730

== ENCOUNTER 2023-08-26 08:25 | Day surgery (SDC) | payer OTHER, MEDICAID ==
[2023-08-26] MEDS ORDERED: Lidocaine 1% PF 5 ML VIAL ONE (08:33)
[2023-08-26] MEDS ORDERED: Sodium Bicarbonate 2.5 MEQ/5 ML SDV ONE (08:33)
== END 2023-08-26 10:15 | disposition home or self-care (01) ==
LOC: ULT 08:25
PROVIDERS: ATTEND Physician Assistant Medical
PROC: 0W9G30Z Drainage of Peritoneal Cavity with Drainage Device, Percutaneous Approach (ICD-10-PCS; principal; 2023-08-26)
DX: K70.31 Alcoholic cirrhosis of liver with ascites (principal); K72.90 Hepatic failure, unspecified without coma; D64.9 Anemia, unspecified
CPT/HCPCS: 49083

== ENCOUNTER 2023-09-02 08:27 | Day surgery (SDC) | payer OTHER, MEDICAID ==
[2023-09-02] MEDS ORDERED: Sodium Bicarbonate 2.5 MEQ/5 ML SDV ONE (08:44)
[2023-09-02] MEDS ORDERED: Lidocaine 1% PF 5 ML VIAL ONE (08:44)
[2023-09-02] MEDS ORDERED: Albumin 25% 200 ML ONE (09:10)
[2023-09-02 11:48] VITALS: BP 130/86; TEMP 97.8
== END 2023-09-02 10:45 | disposition home or self-care (01) ==
LOC: ULT 08:27
PROVIDERS: ATTEND Physician Assistant Medical
PROC: 0W9G30Z Drainage of Peritoneal Cavity with Drainage Device, Percutaneous Approach (ICD-10-PCS; principal; 2023-09-02)
DX: K70.31 Alcoholic cirrhosis of liver with ascites (principal); K72.90 Hepatic failure, unspecified without coma; D64.9 Anemia, unspecified
CPT/HCPCS: 49083; P9047

== ENCOUNTER 2023-09-16 08:30 | Day surgery (SDC) | payer OTHER, MEDICAID ==
[2023-09-16] MEDS ORDERED: Sodium Bicarbonate 2.5 MEQ/5 ML SDV ONE (08:39)
[2023-09-16] MEDS ORDERED: Lidocaine 1% PF 5 ML VIAL ONE (08:39)
[2023-09-16] MEDS ORDERED: Albumin 25% 0 ML ONE (08:41)
== END 2023-09-16 10:20 | disposition home or self-care (01) ==
LOC: ULT 08:30
PROVIDERS: ATTEND Physician Assistant Medical
PROC: 0W9G3ZZ Drainage of Peritoneal Cavity, Percutaneous Approach (ICD-10-PCS; principal; 2023-09-16)
DX: K70.31 Alcoholic cirrhosis of liver with ascites (principal); K72.90 Hepatic failure, unspecified without coma; D64.9 Anemia, unspecified
CPT/HCPCS: 49083; P9047